=== PATIENT | female | born 1985 | race Caucasian/White ===

== ENCOUNTER 2016-11-24 16:50 | Emergency (ER) | payer SELFPAY ==
[~2016-11-24 16:50] MED LIST: CIPR25SS PO; DEPA500T2 OR; IBUP80TA PO; LEXAPRO OR; PERCOCET PO; QUET20XRTB OR; VICO5TAB OR
== END 2016-11-24 17:57 | disposition left against medical advice (07) ==
LOC: M ED 16:50
DX: R10.9 Unspecified abdominal pain (principal); Z53.29 Procedure and treatment not carried out because of patient's decision for other reasons

== ENCOUNTER 2017-01-04 12:16 | Emergency (ER) | payer OTHER, SELFPAY ==
[~2017-01-04] VITALS: Ht 165.1 cm; Wt 85.7 kg
[2017-01-04 13:37] LABS: BASO % 0.1 % (0.0-1.0); EOS % 0.4 % (0.0-3.0); LARGE UNSTAINED CELL # 0.1 K/mm3 (0.0-0.4); LARGE UNSTAINED CELL % 0.6 % (0.0-4.0); LYMPH # 1.1 K/mm3 (1.5-4.5); LYMPH % 9.8 % (24.0-44.0); MEAN CORPUSCULAR HEMOGLOBIN 30.1 pg (27.0-33.0); MEAN CORPUSCULAR HGB CONC 33.2 g/dl (32.0-36.5); MEAN CORPUSCULAR VOLUME 90.7 fl (80.0-96.0); MONO # 0.3 K/mm3 (0.0-0.8); MONO % 2.7 % (0.0-5.0); NEUTROPHILS # 9.2 K/mm3 (1.8-7.7); NEUTROPHILS % 86.4 % (36.0-66.0); PLATELET COUNT, AUTOMATED 342 k/mm3 (150-450); RED CELL DISTRIBUTION WIDTH 12.3 % (11.5-14.5); WHITE BLOOD COUNT 10.6 K/mm3 (4.0-10.0)
[2017-01-04 13:44] LABS: CONTROL LINE HCG INT CTR LINE PRESENT
[2017-01-04] MEDS ORDERED: ONDANSETRON 4 MG ORAL DISINTEGRATING TAB (S0181) PO ONE (13:45)
[2017-01-04 13:51] LABS: METHADONE URINE NEGATIVE (NEGATIVE)
[2017-01-04 13:59] LABS: ALBUMIN/GLOBULIN RATIO 1.14 (1.00-1.93); ALKALINE PHOSPHATASE 139 U/L (45-117); ALT/SGPT 66 U/L (12-78); ANION GAP 9 MEQ/L (8-16); AST/SGOT 28 U/L (15-37); BILIRUBIN,DIRECT 0.1 MG/DL (0.0-0.2); BILIRUBIN,TOTAL 0.4 MG/DL (0.2-1.0); BLOOD UREA NITROGEN 9 MG/DL (7-18); CALCIUM LEVEL 8.9 MG/DL (8.5-10.1); CARBON DIOXIDE LEVEL 26 MEQ/L (21-32); CHLORIDE LEVEL 103 MEQ/L (98-107); CREATININE FOR GFR 0.72 MG/DL (0.55-1.02); GLOMERULAR FILTRATION RATE > 60.0 (>60); GLUCOSE, FASTING 119 MG/DL (70-105); POTASSIUM SERUM 4.3 MEQ/L (3.5-5.1); SODIUM LEVEL 138 MEQ/L (136-145); TOTAL PROTEIN 7.5 GM/DL (6.4-8.2)
--- NOTE | 2017-01-04 14:10 | REP ---
RIGHT LOWER EXTREMITY SOFT TISSUE ULTRASOUND: 01/04/2017 CLINICAL HISTORY: Right groin proximal thigh region with erythema and swelling. No drainage. Sonographic evaluation of the area of swelling in the right groin and proximal thigh corresponds to a predominantly hypoechoic complex fluid collection 3.3 x 3.2 x 1.3 cm. A technologist notes tenderness, swelling and erythema. IMPRESSION: Subcutaneous abscess 3.3 x 3.2 x 1.3 cm in the right groin and proximal thigh region. Signed by Vinicio Wood MD 01/04/2017 08:12 P
[2017-01-04] MEDS ORDERED: BACTRIM 160MG/800MG DS TAB PO ONE (14:15)
[2017-01-04] MEDS ORDERED: LIDOCAINE 1% MDV 20ML VIAL As Ordered ONE (14:48)
[2017-01-04] MEDS ORDERED: LIDOCAINE 1% MDV 20ML VIAL XX ONE (15:00)
[2017-01-04] MEDS ORDERED: BACT800T5 PO (15:26)
[2017-01-04 15:49] VITALS: BP 126/81
--- NOTE | 2017-02-04 23:16 | RO ---
DATE OF PROCEDURE: 01/04/2017 PREOPERATIVE DIAGNOSIS: Right groin abscess. POSTOPERATIVE DIAGNOSIS: Right groin abscess. PROCEDURE PERFORMED: Incision and drainage right groin abscess. SURGEON: Sukh Pool MD [employer]PER[employer]OR [employer] G[employer]: ANESTHESIA: Local anesthesia with 1% lidocaine. PACKIN/2 inch Iodoform gauze. PROCEDURE NOTE: Ms. Giles is a 31-year-old female brought in by her mom. She is a heroin abuser and apparently voiced out that she wanted to end her life so she is being held her at the psychiatric area in the emergency room. She was found to have an abscess on her right groin/thigh area from heroin use. It measures about 3 x 3 cm. I was called in to incise the abscess. Consent was obtained from the patient. She remains at the bedside. Under sterile technique, the area was cleaned with betadine. The area draped sterilely. After infiltration of the inflamed area, a generous cruciate incision was created on top of the fluctuant swelling with resulting drainage of whitish thick purulent material then later blood. I probed the cavity to make sure there are no loculations. After temporarily packed the area for hemostasis I then left light packing of 1/2 inch Iodoform gauze with a bulky gauze dressing to cover the incision. The patient tolerated the procedure well. Postprocedure instructions given to the patient.
== END 2017-01-04 15:52 | disposition home or self-care (01) ==
LOC: M ED 13:06
DX: F33.9 Major depressive disorder, recurrent, unspecified (principal); F11.10 Opioid abuse, uncomplicated; L02.415 Cutaneous abscess of right lower limb
CPT/HCPCS: 10060; 36415; 76882; 80048; 80076; 80306; 84443; 84703; 85025; 87040; 99285; G0480

== ENCOUNTER 2017-02-25 21:32 | Emergency (ER) | payer OTHER ==
[~2017-02-25] VITALS: Ht 167.6 cm; Wt 83.5 kg
[~2017-02-25 21:32] MED LIST changes: +BACT800T5 PO
[2017-02-25 21:33] VITALS: BP 128/74
== END 2017-02-25 22:44 | disposition left against medical advice (07) ==
LOC: M ED 22:40
DX: Z53.29 Procedure and treatment not carried out because of patient's decision for other reasons (principal)

== ENCOUNTER 2017-02-26 16:54 | Emergency (ER) | payer OTHER ==
[~2017-02-26] VITALS: Ht 167.6 cm; Wt 83.5 kg
[2017-02-26 19:15] LABS: BASO % 0.4 % (0.0-1.0); EOS # 0.1 K/mm3 (0.0-0.50); EOS % 1.5 % (0.0-3.0); LARGE UNSTAINED CELL # 0.1 K/mm3 (0.0-0.4); LARGE UNSTAINED CELL % 2.2 % (0.0-4.0); LYMPH % 30.9 % (24.0-44.0); MEAN CORPUSCULAR HEMOGLOBIN 30.6 pg (27.0-33.0); MEAN CORPUSCULAR HGB CONC 33.2 g/dl (32.0-36.5); MEAN CORPUSCULAR VOLUME 92.2 fl (80.0-96.0); MONO # 0.2 K/mm3 (0.0-0.8); MONO % 2.6 % (0.0-5.0); NEUTROPHILS % 62.4 % (36.0-66.0); PLATELET COUNT, AUTOMATED 287 k/mm3 (150-450); WHITE BLOOD COUNT 6.4 K/mm3 (4.0-10.0)
[2017-02-26 19:59] LABS: CONTROL LINE HCG INT CTR LINE PRESENT
--- NOTE | 2017-02-26 20:00 | REPUSA ---
Clinical history: Right upper quadrant pain. Findings: The pancreas is limited in visualization secondary to overlying bowel gas, but appears khushbu sly unremarkable. The liver demonstrates uniform echotexture and echogenicity, with no mass lesions. The gallbladder contains a 5 mm, non-mobile focus consistent with a gallbladder polyp. The common carlos e duct measures 3 mm and is within normal limits. The right kidney measures 10.9 cm in length and is unremarkable. There is no ascites. Impression: No acute findings. Gallbladder polyp. A one-year follow-up is recommended.
[2017-02-26 20:06] LABS: ALBUMIN 3.9 GM/DL (3.2-5.2); ALBUMIN/GLOBULIN RATIO 1.22 (1.00-1.93); ALKALINE PHOSPHATASE 70 U/L (45-117); ALT/SGPT 22 U/L (12-78); ANION GAP 3 MEQ/L (8-16); AST/SGOT 12 U/L (15-37); BILIRUBIN,DIRECT < 0.1 MG/DL (0.0-0.2); BILIRUBIN,TOTAL 0.3 MG/DL (0.2-1.0); BLOOD UREA NITROGEN 12 MG/DL (7-18); CALCIUM LEVEL 8.4 MG/DL (8.5-10.1); CARBON DIOXIDE LEVEL 31 MEQ/L (21-32); CHLORIDE LEVEL 108 MEQ/L (98-107); CREATININE FOR GFR 0.91 MG/DL (0.55-1.02); GLOMERULAR FILTRATION RATE > 60.0 (>60); GLUCOSE, FASTING 93 MG/DL (70-105); SODIUM LEVEL 142 MEQ/L (136-145); TOTAL PROTEIN 7.1 GM/DL (6.4-8.2)
[2017-02-26 20:27] VITALS: BP 121/78
--- NOTE | 2017-02-27 11:00 | ED PDOC ---
Post-Departure Follow-Up certified letter sent to pt re formal report of abdl us for fu Dina Jimenez MD February 27, 2017 11:00
== END 2017-02-26 20:38 | disposition home or self-care (01) ==
LOC: M ED 17:18
DX: K82.4 Cholesterolosis of gallbladder (principal); R10.11 Right upper quadrant pain; F17.200 Nicotine dependence, unspecified, uncomplicated

== ENCOUNTER → 2017-04-02 | Outpatient (REF) | LOC: M LAB 10:06 ==